=== PATIENT | female | born 1950 | race Two or more races ===

== ENCOUNTER 2021-09-17 17:32 | Emergency (ER) | payer OTHER ==
[~2021-09-17] VITALS: Ht 162.6 cm; Wt 145.1 kg
--- NOTE | 2021-09-17 17:45 | NUR ---
JUSTINA [id number] From Home "SOB/Swelling BLE.+CHF initially HTN given 3 nasal sprays nitro. On 15 lpm via nrb 02 sat 100%, bilateral lungs wheezing. Connected to the monitor and pulse ox. kept comfortable, will continue to monitor accordingly.
[2021-09-17] MEDS ORDERED: FUROSEMIDE 40 MG/4 ML VIAL ONE (17:48)
[2021-09-17] MEDS ORDERED: NITROGLYCERIN PACKET 1 GM PACKET ONE (17:48)
[2021-09-17] MEDS ORDERED: ASPIRIN 325 MG TABLET ONE (17:48)
[2021-09-17] MEDS ORDERED: FUROSEMIDE 40 MG/4 ML VIAL IV ONE (18:00)
[2021-09-17] MEDS ORDERED: NITROGLYCERIN PACKET 1 GM PACKET TD ONE (18:00)
[2021-09-17] MEDS ORDERED: ASPIRIN 325 MG TABLET PO ONE (18:00)
--- NOTE | 2021-09-17 18:05 | NUR ---
covid swab collected and sent to lab
[2021-09-17] MEDS ORDERED: METO-357 PO (18:19)
[2021-09-17] MEDS ORDERED: GLIP10TA11 PO (18:19)
[2021-09-17] MEDS ORDERED: ASPI-1420 PO (18:19)
[2021-09-17] MEDS ORDERED: LEVO100T9 PO (18:19)
[2021-09-17] MEDS ORDERED: ATOR20TA PO (18:19)
[2021-09-17] MEDS ORDERED: METF-881 PO (18:19)
[2021-09-17] MEDS ORDERED: ALBU90AE INH (18:19)
[2021-09-17] MEDS ORDERED: NPH,100V SQ ×2 (18:19)
[2021-09-17] MEDS ORDERED: AMLO2.5T4 PO (18:19)
[2021-09-17] MEDS ORDERED: LISI20TA30 PO (18:19)
--- NOTE | 2021-09-17 18:19 | NUR ---
CALLED [facility] AND OPENED A CASE
[2021-09-17 18:30] LABS: BASOPHILS % (AUTO) 0.6 % (0.0-2.0); EOSINOPHILS % (AUTO) 1.1 % (0.0-6.0); HEMATOCRIT 36 % (33-45); HEMOGLOBIN 10.9 g/dL (11.5-14.8); LYMPHOCYTES # (AUTO) 0.9 K/uL (0.8-4.8); LYMPHOCYTES % (AUTO) 13.4 % (20.0-44.0); MEAN CORPUSCULAR HGB CONC 31 g/dl (31.0-36.0); MEAN CORPUSCULAR VOLUME 83 fL (82-100); MONOCYTES # (AUTO) 0.8 K/uL (0.1-1.30); MONOCYTES % (AUTO) 12.7 % (2.0-12.0); NEUTROPHILS # (AUTO) 4.7 K/uL (1.8-8.9); NEUTROPHILS % (AUTO) 72.2 % (43.0-81.0); PLATELET COUNT (AUTO) 153 K/uL (150-450); RED BLOOD CELL COUNT(AUTO) 4.31 MIL/uL (4.0-5.2); WHITE BLOOD COUNT (AUTO) 6.5 K/uL (4.3-11.0)
[2021-09-17 20:17] LABS: ALANINE AMINOTRANSFERASE 16 U/L (12-78); ALBUMIN 2.4 g/dL (3.4-5.0); ALKALINE PHOSPHATASE 135 U/L (46-116); ASPARTATE AMINOTRANSFERASE 19 U/L (15-37); BILIRUBIN,DIRECT 0.3 mg/dL (0.0-0.2); BILIRUBIN,TOTAL 0.9 mg/dL (0.2-1.0); CALCIUM, SERUM 8.7 mg/dL (8.5-10.1); CARBON DIOXIDE 30 mmol/L (21-32); CHLORIDE 97 mmol/L (98-107); POTASSIUM 4.4 mmol/L (3.5-5.1); SODIUM SERUM 133 mmol/L (136-145); TOTAL PROTEIN, SERUM 7.4 g/dL (6.4-8.2); UREA NITROGEN, BLOOD 16 mg/dL (7-18)
[2021-09-17 20:42] LABS: GLUCOSE 188 mg/dL (74-106)
--- NOTE | 2021-09-17 21:19 | NUR ---
PAGED [facility] FOR FOLLOW UP
--- NOTE | 2021-09-17 23:26 | NUR ---
TRANSFER INFO: [facility] ROOM [id number], TRACY MAURO [phone], ACCEPTED BY DR ALEXANDRE, [facility] ETA [id number], WILL FOLLOW UP IF EARLIER ETA AVAILABLE
--- NOTE | 2021-09-18 02:16 | NUR ---
REPORT GIVEN TO TRACY QUEEN AT [place]. ROOM CHANGE TO [id number]
[2021-09-18 03:45] VITALS: BP 135/94
--- NOTE | 2021-09-18 03:46 | NUR ---
[facility] VSS
--- NOTE | 2021-09-18 04:47 | NUR ---
[facility] WILL CALL BACK WITH NEW ETA
--- NOTE | 2021-09-18 05:00 | NUR ---
ADLS DONE. PT AMBULATORY TO RESTROOM WITH STEADY GAIT WITH 1 PERSON ASSIST & WALKER
--- NOTE | 2021-09-18 05:29 | NUR ---
REPORT GIVEN TO [facility] EMT FOR PT TO TRANSFER TO [facility]. VSS.
== END 2021-09-18 06:19 | disposition short-term general hospital (02) ==
LOC: ER 17:34
DX: I11.0 Hypertensive heart disease with heart failure (principal); I50.23 Acute on chronic systolic (congestive) heart failure; Z20.822 Contact with and (suspected) exposure to COVID-19; R94.31 Abnormal electrocardiogram [ECG] [EKG]; Z95.0 Presence of cardiac pacemaker; E11.9 Type 2 diabetes mellitus without complications; Z79.4 Long term (current) use of insulin; Z79.84 Long term (current) use of oral hypoglycemic drugs; Z79.899 Other long term (current) drug therapy; K21.9 Gastro-esophageal reflux disease without esophagitis; E78.00 Pure hypercholesterolemia, unspecified
CPT/HCPCS: 99285; 96374; 71045; 87426; 93005; 85025; 80048; 80076; 36415; 84484; 83880; J1940; C9803